=== PATIENT | male | born 1975 | race Hispanic/Latino ===

== ENCOUNTER 2020-07-09 13:34 | Emergency (ER) | payer BC ==
[2020-07-09] MEDS ORDERED: CEPHALEXIN 500 MG CAPSULE ONE (14:02)
[2020-07-09] MEDS ORDERED: HYDROCODONE/ACETAMINOPHEN 10/325 MG TAB ONE (14:03)
[2020-07-09] MEDS ORDERED: LIDOCAINE HCL-MPF 1% 2ML VIAL ONE ×2 (14:05→15:14)
[2020-07-09] MEDS ORDERED: TETANUS/DIPHTHERIA TOXOID [ADULT] 0.5 ML VIAL IM ONE (14:17)
[2020-07-09] MEDS ORDERED: LIDOCAINE HCL 1% 20 ML VIAL ONE (15:15)
== END 2020-07-09 15:58 | disposition home or self-care (01) ==
LOC: EDH 13:34
DX: S81.811A Laceration without foreign body, right lower leg, initial encounter (principal); S80.11XA Contusion of right lower leg, initial encounter; I10 Essential (primary) hypertension; W22.8XXA Striking against or struck by other objects, initial encounter; Y93.39 Activity, other involving climbing, rappelling and jumping off; Y92.89 Other specified places as the place of occurrence of the external cause; Y99.8 Other external cause status
CPT/HCPCS: 12002; 73590; 90471; 90714; 99284; J3490 ×2